=== PATIENT | male | born 1980 | race Caucasian/White ===

== ENCOUNTER → 2020-02-29 | Outpatient (CLI) | payer OTHER ==
[~2020-02-29] MED LIST: PROHANCE 279.3MG/ML 15ML VIAL As Ordered ONE; PROHANCE 279.3MG/ML 5ML VIAL As Ordered ONE
--- NOTE | 2020-02-29 13:03 | REP ---
MRI PELVIS WITH AND WITHOUT CONTRAST: TECHNIQUE: Multiple sequences obtained in the axial. Coronal and sagittal planes prior to and following the intravenous administration of 20 mL ProHance. At the anorectal junction posteriorly, at the 5 to 6 -o'clock position, a fistulous tract is noted extending directly posteriorly and inferiorly into the left ischioanal fossa. The fistula extends to the inferior left gluteal fold and appears to communicate with the skin at that location. The maximum transverse diameter is located in the left ischioanal fossa, measuring approximately 7 mm. There is surrounding inflammatory changes in the soft tissues of this region. Tiny ill-defined fossae of fluid are seen adjacent to the distal end of the fistula. They may represent tiny blind-ending sinuses in these soft tissues. No other fluid collection or fistula is seen. No mass or adenopathy is seen within the pelvis. The urinary bladder is unremarkable. The visualized osseous structures are unremarkable. A few mildly prominent inguinal lymph nodes are present measuring up to 1.1 cm in short axis. 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 The fistula extends posteriorly and inferiorly in the left ischioanal fossa and appears to communicate with the skin of the left inferior gluteal fold as discussed above. Electronically Signed by Abelardo Castillo MD 03/01/2020 04:37 P
== END ==
LOC: M RAD 08:48
DX: K50.113 Crohn's disease of large intestine with fistula (principal)
CPT/HCPCS: 72197; A9576